=== PATIENT | female | born 1965 | race Caucasian/White ===

== ENCOUNTER 2018-04-01 06:37 | Day surgery (SDC) | payer OTHER, SELFPAY ==
[2018-03-25 08:34] VITALS: BMI 33.3
[2018-04-01] VITALS (11 sets, daily range): BP systolic 97–116; BP diastolic 43–78; PULSE 50–84; RESP 9–20; TEMP 36.2–37.1; O2SAT 93–99; BMI 32.8
--- NOTE | 2018-04-01 | PATH_ITS ---
[facility] Accession Number: [id number] . 01 Material submitted: . UTERUS AND BILATERAL FALLOPIAN TUBES . 02 Diagnosis: Uterus and Bilateral Fallopian Tubes, Hysterectomy, Bilateral Salpingectomies: 1. Bilateral fallopian tubes with paratubal cysts. 2. Proliferative endometrium. 3. Adenomyosis. 4. Benign endometrial polyp. 5. No evidence of neoplasia or hyperplasia. [facility]/04/03/2018 . 02 Electronically signed: . Vianney Victor MD, Pathologist NPI- [id number] . 01 Gross description: . Received in formalin, labeled uterus and bilateral fallopian tubes, is a morcellated uterus (92 grams, 14.5 x 9.5 x 3.3 cm in aggregate) and two fimbriated fallopian tubes (tube #1: length-6.6 cm, diameter-0.4 cm; tube #2: length-6.1 cm, diameter-0.4 cm). The cervix and ovaries are absent. The specimen cannot be oriented and the endometrium and myometrium cannot be grossly measured. The parenchyma is blackwell and unremarkable. The serosa is blackwell smooth and shiny. The fallopian tubes have dejesus-purple smooth and shiny serosa and multiple paratubal cysts (0.1 cm-0.9 cm) containing clear colorless fluid. The lumens are blackwell and unremarkable. Section code: (A1-A4) parenchyma, benefits representative tissue; (A5) fallopian tube #1, benefits representative serial sections; (A6) fimbria #1, bivalved, entirely submitted; (A7) fallopian tube #2, benefits representative serial sections; (A8) fimbria #2, bivalved, entirely submitted. ([id number]) /[facility] . 02 Pathologist provided ICD-10: N92.6 . 02 CPT . 349113 Performed at: 01 [facility] [address] [place] [address], [place], [place] [id number] MD Ramy Roger MD Phone: [phone] Performed at: 02 [facility] [address] [place], [place] [id number] MD Vianney Victor MD Phone: [phone]
[2018-04-01] MEDS: LACTATED RINGERS 1,000 ML 42 ML IV ×2 (07:22→10:12)
--- NOTE | 2018-04-01 07:43 | PM.PREOP ---
Pre-operative Note Interval Note Pre-op Check: Yes History & Physical Reviewed by Physician Changes: No
[2018-04-01] MEDS: CEFAZOLIN 2 GM/100 ML FROZ.PIGGY IV (07:59)
--- NOTE | 2018-04-01 08:43 | SUR.OPER ---
Lithotomy on padded OR bed. Raymond Pad Positioner under torso. Head on pillow, arms padded and tucked at sides. Legs secured in padded yellow fins stirrups.
[2018-04-01] MEDS: BUPIVACAINE 0.5% W/ EPI (PF) VIAL 30 ML INJ (08:52)
[2018-04-01] MEDS: ROPIVACAINE 0.2% PF 2 MG/ML 10ML AMP 20 ML INJ (09:02)
--- NOTE | 2018-04-01 09:56 | SUR.PHASEI ---
Pt reported 3/10 craping abd pain, pt declined opiods due to hx of vomiting. Ice pack applied
[2018-04-01] MEDS: METOCLOPRAMIDE 10 MG/2 ML INJ IV (10:02)
--- NOTE | 2018-04-01 10:04 | SUR.PHASEI ---
Pt reported mild nausea, medicated with Reglan.
--- NOTE | 2018-04-01 10:10 | SUR.PHASEI ---
Pt c/o nausea, queaze offered, pt declined. Pt tolerated a sip of gingerale.
--- NOTE | 2018-04-01 10:46 | SUR.PHASEII ---
Spouse at bedside. Call light within reach.
--- NOTE | 2018-04-01 10:57 | CM.DPNOTE ---
Addendum entered by LEVY Reina 04/01/18 13:22: ADD: Per MD, pt is medically stable to d/c home today with no identified barriers to discharge. Per Rn, no concerns at this time. Plan: Patient to d/c home today via POV and no SW needs at this time. LEVY Reina Original Note: DCP Chart Review Patient is a 52 year old female who was admitted today on 04/01/18 as Outpt with Bed for hysterectomy. Pt has [employer] for insurance and her PCP is not listed. EMR was reviewed. SW attempted to meet bedside with pt but pt was off the floor at surgery and no family in the room. Plan: SW to follow for bedside assessment once pt is back from surgery to determine if any d/c planning needs. LEVY Reina
[2018-04-01] MEDS: ACETAMINOPHEN 1,000 MG/100 ML VIAL IV (11:06)
--- NOTE | 2018-04-01 11:13 | SUR.PHASEII ---
IV tylenol started, on a plum pump, set for 15 minutes. Pt denied nausea at this time.
--- NOTE | 2018-04-01 11:14 | SUR.PHASEII ---
Abd drsgs cdi 4, Carrol-pad CDI.
--- NOTE | 2018-04-01 11:50 | SUR.PHASEII ---
Pt up to the bathroom, + void. Post void residual bladder scan showed 31mls. Pt reported 2/10 pain and denied nausea. Skin pink. Offered applesauce, pt declined at this time. Call light within reach.
--- NOTE | 2018-04-01 13:13 | SUR.PHASEII ---
Pt declined Oxycodone Rx due to hx of vomiting with medication. Dr. Herman notified, new rx for Hydrocodone picked up and give to pt's spouse. Oxycodone Rx destroyed.
--- NOTE | 2018-04-02 06:59 | P.OP_ITS ---
Operative Date/Time/Diagnoses Date of procedure: 04/01/18 Time of procedure: 09:30 Pre-op diagnosis: Pelvic pain Pelvic congestion Post-op diagnosis: same Procedure: Procedures Operation Date: 04/01/18 07:45 Actual Procedures Side Surgeon p Laparoscopic Supracervical Hysterectomy w/Bilat Salpingectomy Not Applicable Leigh Herman MD Excision of left ovarian cyst Indications: Pelvic pain Pelvic congestion Left ovarian cyst Surgeon: Leigh Herman Knife Sharpener: Clarence Tillman Anesthesia Type: General Operative Notes Findings: 10 week size anteverted uterus 3 cm simple left ovarian cyst Normal right ovary Normal tubes Normal liver and gallbladder Closure Type: primary Specimen(s): left tube, right tube and uterus Applied: catheter (Removed at the end of the case) Estimated blood loss (mL): 50 Blood products transfused: none Procedure in detail: The patient was taken to the operating room where she was placed in the dorsal supine position. After adequate general endotracheal anesthesia was achieved, she was placed in the dorsal lithotomy position, and prepped and draped in the usual sterile fashion. A timeout was performed. A bivalve speculum was placed into the vagina and the anterior lip of the cervix grasped with a single-tooth tenaculum. The cervical os was sequentially dilated until the ZUMI uterine manipulator could pass easily into the endometrial cavity. The single-tooth tenaculum was removed from the anterior lip of the cervix, and the bivalve speculum was removed from the vagina. Attention was then turned to the abdomen where 6 mL of half percent Marcaine with epinephrine were injected in the umbilical fold. A 5 mm incision was made. The Verhees needle was placed into the peritoneal cavity, and its placement confirmed by aspiration and drop test. The Verhees needle was removed. A 5 mm trocar was placed without difficulty. 2 other incisions were made midway between the pubic symphysis and umbilicus after 5 mL of half percent Marcaine with epinephrine were injected. These were 5 mm incisions. Two 5 mm trochars were placed under direct visualization. The right tube was grasped with an atraumatic grasper. Using the plasma kinetic with settings of 40 W the mesosalpinx was cauterized and cut all the way down to the cornua of the uterus. The cornua of the uterus was then grasped with an atraumatic grasper. The utero-ovarian ligaments were cauterized and cut. The round ligament and broad ligament was cauterized and cut with plasma kinetic. Hemostasis was achieved. The bladder flap was created using the plasma kinetic with cautery and cut intermediate across. The uterine arteries on the right side were extensively cauterized with plasma kinetic. All of this was repeated on the left side. Also the left ovarian cyst was punctured and the cyst wall removed and cauterized for hemostasis. The remainder of the bladder flap was created using the plasma kinetic, and the bladder taken down off the lower uterine segment and cervix. Using the Endoloop, the cervix was amputated from the uterus 2 cm above the uterosacral ligaments, after the ZUMI uterine manipulator was removed from the uterus. There was a small amount of bleeding noted from the posterior edge of the cervix, and this was cauterized for hemostasis. A sponge stick was placed into the vagina. 6 mL of half percent Marcaine with epinephrine were injected above the pubic symphysis. A 12 mm trocar was placed. The 12 mm trocar was removed. A Mayra was used to extend the fascial incision. An Endobag was placed through the suprapubic trocar and the uterus and tubes were placed into the Endobag. The Anderson placed into the endobag. The uterus was hand morcellated in approximately 14 pieces. The Endobag was removed from the peritoneal cavity. The pelvis was copiously irrigated with warm normal saline. No bleeding was noted. The instruments were removed from the abdomen. The CO2 was allowed to escape. The suprapubic incision was closed on the fascia with 0 Vicryl. All of the incisions were closed with 4-0 undyed Vicryl in a subcuticular fashion. Steri-Strips, 2 x 2, and op site were placed over the incisions. The moistened sponge stick was removed from the vagina. Sponge, lap, and instrument counts were correct x-2. The patient tolerated the procedure well, was taken to PACU in stable condition. Complications: none Post-operative Condition: stable Disposition: PACU Plan for aftercare: Home after recovery
== END 2018-04-01 12:59 | disposition home or self-care (01) ==
LOC: OR 06:38 → AC 06:40
PROVIDERS: Visit Provider Obstetrics & Gynecology
PROC: 0UT94ZL Resection of Uterus, Supracervical, Percutaneous Endoscopic Approach (ICD-10-PCS; CPT 58542; principal; 2018-04-01 07:45)
DX: N83.292 Other ovarian cyst, left side (principal); N94.6 Dysmenorrhea, unspecified; J45.909 Unspecified asthma, uncomplicated; F33.41 Major depressive disorder, recurrent, in partial remission
CPT/HCPCS: 58542; J0131; J0690; J1100; J2405; J2704; J2765; J2795

== ENCOUNTER → 2018-12-30 11:30 | Outpatient (CLI) | payer OTHER, SELFPAY ==
--- NOTE | 2018-12-30 | DI.MG.S_ITS ---
BILATERAL DIGITAL SCREENING MAMMOGRAM 3D/2D WITH CAD: 12/30/2018 CLINICAL: Routine screening. Family history of breast cancer. Comparison is made to exams dated: 06/26/2017 mammogram, 06/01/2016 mammogram, and 01/21/2015 mammogram - [facility]. The tissue of both breasts is extremely dense, which lowers the sensitivity of mammography. Current study was also evaluated with a Computer Aided Detection (CAD) system. No significant masses, calcifications, or other findings are seen in either breast. There has been no significant interval change. IMPRESSION: NEGATIVE There is no mammographic evidence of malignancy. A 1 year screening mammogram is recommended. This exam was interpreted at Station ID: [id number]. NOTE: For mammograms, a report in lay terms will be sent to the patient. Approximately 15% of breast malignancies will not be visualized mammographically. In the management of a palpable breast mass, a negative mammogram must not discourage biopsy of a clinically suspicious lesion. Electronically Signed By: Frank sotelo/lisa:12/30/2018 12:30:16 letter sent: Normal Exam ACR BI-RADS Category 1: Negative 3341F
== END ==
PROVIDERS: Family Provider Physician Assistant; PCP Physician Assistant; Visit Provider Obstetrics & Gynecology
DX: Z12.31 Encounter for screening mammogram for malignant neoplasm of breast (principal); Z80.3 Family history of malignant neoplasm of breast
CPT/HCPCS: 77063; 77067

== ENCOUNTER → 2019-01-15 16:00 | Outpatient (CLI) | payer OTHER, SELFPAY ==
--- NOTE | 2019-01-15 16:02 | DI.MRI.S_ITS ---
PROCEDURE: MR CERVICAL SPINE WO CON INDICATIONS: Cervical pain with radiculopathy left arm TECHNIQUE: Noncontrast sagittal T1 spin echo and T2 fast spin echo, sagittal STIR, foraminal oblique sagittal T2 fast spin echo, and axial gradient echo or T2 fast spin echo through the cervical spine. COMPARISON: None. FINDINGS: Image quality: Excellent. Alignment and Curvature: There is normal bony alignment. Bone Marrow: Marrow demonstrates normal overall signal. Spinal Cord: Visualized spinal cord has normal size and signal. No cerebellar tonsillar herniation. Paraspinous Soft Tissues: No paravertebral masses. Prevertebral soft tissues are normal in thickness. C2-C3: Normal appearance. C3-C4: Mild to moderate degenerative disc disease with the posterior small transverse disc bulge, and facet hyperostosis at the facet joints bilaterally is mild, combining with uncovertebral osteoarthritic change at C3-4 resulting in mild concentric spinal stenosis and mild to moderate foraminal stenosis without definite focal nerve root impingement.. C4-C5: The degenerative changes at this level are greater, and also more prominent on the left than the right. The degenerative disc height reduction is moderately severe, and there is a broad-based transverse disc bulge that is slightly greater on the left than the right, with facet and uncovertebral osteoarthritis more prominent on the left than the right resulting in asymmetric foraminal stenosis. Therefore there is mild to moderate asymmetric left-sided predominant spinal stenosis and also foraminal stenosis greater on the left with potential for significant impingement on the left C5 nerve root. C5-C6: Moderately severe degenerative disc disease is present but with only a slight degree of posterior disc bulging which effaces CSF from the anterior thecal sac but does not distort the cord. Facet and uncal vertebral degenerative changes are again seen to be slightly greater on the left right. With a mild degree of right-sided foraminal stenosis and a mild to moderate degree of left-sided foraminal stenosis asymmetric left greater than right nerve root impingement involving the C6 nerve root would be expected. C6-C7: Moderately severe degenerative disc disease, but with only a small posterior transverse disc bulge. Facet and uncovertebral osteoarthritic change is symmetric, moderately severe, and results in moderate symmetric bilateral foraminal stenosis with likelihood of symmetric impingement on the course of the C7 nerve roots equally. C7-T1: Mild degenerative disc disease, minimal facet degeneration, no significant spinal or foraminal stenosis. IMPRESSION: Multilevel degenerative disc disease and facet osteoarthritis results in both spinal and foraminal stenosis that is both measure 10 asymmetric as discussed in detail by level and the body of the report above. No prior trauma is found. No evidence for presence of disc bulge or herniation that appears acute. Dictated by: Hardik Salazar M.D. on 01/15/2019 at 16:51 Approved by: Hardik Salazar M.D. on 01/15/2019 at 16:57
== END ==
PROVIDERS: PCP Physician Assistant; Visit Provider Physician Assistant
DX: M50.11 Cervical disc disorder with radiculopathy, high cervical region (principal); M48.02 Spinal stenosis, cervical region; M47.22 Other spondylosis with radiculopathy, cervical region
CPT/HCPCS: 72141

== ENCOUNTER → 2019-12-23 16:10 | Outpatient (CLI) | payer OTHER, SELFPAY | PROVIDERS: PCP Physician Assistant; Visit Provider Nurse Practitioner | DX: R21 Rash and other nonspecific skin eruption (principal) | CPT/HCPCS: 87252 ==

== ENCOUNTER → 2020-01-24 08:55 | Outpatient (CLI) | payer OTHER, SELFPAY ==
--- NOTE | 2020-01-24 09:12 | DI.MG.S_ITS ---
Patient Name: CHEMO SHARMA date: 1965 Sex: F Attending Physician: Alexandre Indications: Date: 01/24/2020 09:10 At the request of: SILVINO GARCIA Procedure: MM screening mammo BI BILATERAL DIGITAL SCREENING MAMMOGRAM 3D/2D WITH CAD: 01/24/2020 CLINICAL: Routine screening. Family history of breast cancer. Comparison is made to exams dated: 12/30/2018 mammogram, 06/26/2017 mammogram, and 06/01/2016 mammogram - [facility]. The tissue of both breasts is heterogeneously dense. This may lower the sensitivity of mammography. Current study was also evaluated with a Computer Aided Detection (CAD) system. No significant masses, calcifications, or other findings are seen in either breast. There has been no significant interval change. IMPRESSION: NEGATIVE There is no mammographic evidence of malignancy. A 1 year screening mammogram is recommended. This exam was interpreted at Station ID: [id number]. NOTE: For mammograms, a report in lay terms will be sent to the patient. Approximately 15% of breast malignancies will not be visualized mammographically. In the management of a palpable breast mass, a negative mammogram must not discourage biopsy of a clinically suspicious lesion. Electronically Signed By: Linda oneill/lisa:01/26/2020 08:20:09 letter sent: Normal Exam ACR BI-RADS Category 1: Negative 3341F
== END ==
PROVIDERS: PCP Nurse Practitioner; Referring Provider Nurse Practitioner; Visit Provider Nurse Practitioner
DX: Z12.31 Encounter for screening mammogram for malignant neoplasm of breast (principal); Z80.3 Family history of malignant neoplasm of breast
CPT/HCPCS: 77063; 77067

== ENCOUNTER → 2021-01-27 11:02 | Outpatient (CLI) | payer OTHER, SELFPAY ==
--- NOTE | 2021-01-27 11:03 | DI.MG.S_ITS ---
BILATERAL DIGITAL SCREENING MAMMOGRAM 3D/2D WITH CAD: 01/27/2021 CLINICAL: Routine screening. Family history of breast cancer. Comparison is made to exams dated: 01/24/2020 mammogram, 12/30/2018 mammogram, and 06/26/2017 mammogram - [facility]. The tissue of both breasts is heterogeneously dense. This may lower the sensitivity of mammography. Current study was also evaluated with a Computer Aided Detection (CAD) system. No significant masses, calcifications, or other findings are seen in either breast. There has been no significant interval change. IMPRESSION: NEGATIVE There is no mammographic evidence of malignancy. A 1 year screening mammogram is recommended. This exam was interpreted at Station ID: [id number]. NOTE: For mammograms, a report in lay terms will be sent to the patient. Approximately 15% of breast malignancies will not be visualized mammographically. In the management of a palpable breast mass, a negative mammogram must not discourage biopsy of a clinically suspicious lesion. Electronically Signed By: Vern Conteh M.D., jr/lisa:01/27/2021 13:19:15 letter sent: Normal Exam ACR BI-RADS Category 1: Negative 3341F
[2021-01-27 11:54] LABS: Add Manual Diff / Slide Review NO; Basophils Absolute Auto 0 /uL (0-100); Basophils Percent Auto 0.7 % (0-2); Eosinophils Absolute Auto 100 /uL (0-450); Eosinophils Percent Auto 2.6 % (2-4); Hematocrit 40.3 % (36-46); Hemoglobin 13.6 g/dL (12.0-16.0); Lymphocytes Absolute Auto 3100 /uL (1100-4500); Lymphocytes Percent Auto 54.3 % (25-40); Mean Corpuscular HGB Conc 33.8 % (30-36); Mean Corpuscular Hemoglobin 30.7 PG (26-34); Mean Corpuscular Volume 90.8 fL (80-100); Monocytes Absolute Auto 400 /uL (0-900); Monocytes Percent Auto 6.2 % (3-14); Neutrophils Absolute Auto 2100 /uL (1500-7000); Neutrophils Percent Auto 36.2 % (50-75); Platelet Count 181 X10^3/uL (150-400); Red Blood Cell Count 4.44 X10^6/uL (4.0-5.2); White Blood Cell Count 5.7 X10^3/uL (4.5-11.0)
[2021-01-27 12:05] LABS: Alanine Aminotransferase 31 IU/L (<35); Albumin 4.5 g/dL (3.5-5.0); Albumin Globulin Ratio 1.9 (1.0-2.8); Alkaline Phosphatase 66 U/L (38-126); Aspartate Aminotransferase 33 IU/L (14-36); BUN Creatinine Ratio 15.2 (6-22); Bilirubin Total 0.6 mg/dL (0.2-1.3); Blood Urea Nitrogen 12 mg/dL (7-17); Calcium 9.7 mg/dL (8.4-10.2); Carbon Dioxide 29 mmol/L (22-32); Chloride 106 mmol/L (98-107); Cholesterol 155 mg/dL (140-199); Estimated Glomerular Filt Rate > 60.0 mL/min (>60); Globulin 2.4 g/dL (1.7-4.1); Glucose 91 mg/dL (70-100); HDL Cholesterol 62 mg/dL (40-60); HEMOLYSIS < 15 (0-50); LDL Cholesterol Calculated 75 mg/dL (<100); Sodium 141 mmol/L (137-145); Total Protein 6.9 g/dL (6.3-8.2); Triglycerides 90 mg/dL (35-150)
[2021-01-27 12:27] LABS: Free T4, Direct Thyroxine 0.73 ng/dL (0.78-2.19)
[2021-01-27 12:30] LABS: Hemoglobin A1C% w Est Avg Glu 5.2 % (4.0-6.0)
[2021-01-27 12:41] LABS: Thyroid Stimulating Hormone 1.74 uIU/mL (0.47-4.68)
== END ==
PROVIDERS: PCP Nurse Practitioner; Referring Provider Nurse Practitioner; Visit Provider Nurse Practitioner
DX: Z12.31 Encounter for screening mammogram for malignant neoplasm of breast (principal); Z00.00 Encounter for general adult medical examination without abnormal findings; F32.9 Major depressive disorder, single episode, unspecified; R53.83 Other fatigue; F41.8 Other specified anxiety disorders; F51.01 Primary insomnia; E78.5 Hyperlipidemia, unspecified; Z79.899 Other long term (current) drug therapy; Z80.3 Family history of malignant neoplasm of breast
CPT/HCPCS: 36415; 77063; 77067; 80053; 80061; 83036; 84439; 84443; 84481; 85025

== ENCOUNTER → 2021-02-02 09:28 | Outpatient (CLI) | payer OTHER, SELFPAY ==
[2021-02-04 15:36] LABS: Fecal Immunochemical Test Negative (Negative)
== END ==
PROVIDERS: PCP Nurse Practitioner; Referring Provider Nurse Practitioner; Visit Provider Nurse Practitioner
DX: Z00.00 Encounter for general adult medical examination without abnormal findings (principal); Z12.11 Encounter for screening for malignant neoplasm of colon
CPT/HCPCS: 82274

== ENCOUNTER → 2022-02-01 11:09 | Outpatient (CLI) | payer OTHER, SELFPAY ==
--- NOTE | 2022-02-01 | DI.MG.S_ITS ---
BILATERAL DIGITAL SCREENING MAMMOGRAM 3D/2D WITH CAD: 02/01/2022 CLINICAL: Routine screening. Family history of breast cancer. Comparison is made to exams dated: 01/27/2021 mammogram, 01/24/2020 mammogram, and 12/30/2018 mammogram - [facility]. Both breasts are heterogeneously dense, which may obscure small masses (category c / 51-75% glandular tissue). Current study was also evaluated with a Computer Aided Detection (CAD) system. No significant masses, calcifications, or other findings are seen in either breast. There has been no significant interval change. IMPRESSION: NEGATIVE There is no mammographic evidence of malignancy. A 1 year screening mammogram is recommended. This exam was interpreted at Station ID: [id number]. NOTE: For mammograms, a report in lay terms will be sent to the patient. Approximately 15% of breast malignancies will not be visualized mammographically. In the management of a palpable breast mass, a negative mammogram must not discourage biopsy of a clinically suspicious lesion. Electronically Signed By: Vineet art/lisa:02/01/2022 14:49:00 letter sent: Normal Exam ACR BI-RADS Category 1: Negative 3341F
== END ==
PROVIDERS: PCP Nurse Practitioner; Referring Provider Nurse Practitioner; Visit Provider Nurse Practitioner
DX: Z12.31 Encounter for screening mammogram for malignant neoplasm of breast (principal); Z80.3 Family history of malignant neoplasm of breast
CPT/HCPCS: 77063; 77067

== ENCOUNTER 2022-11-25 16:04 | Emergency (ER) | payer OTHER, SELFPAY ==
[2022-11-25] VITALS (20 sets, daily range): BP systolic 129–153; BP diastolic 67–84; PULSE 71–93; RESP 10–29; TEMP 36.7; O2SAT 94–100; BMI 31.6
--- NOTE | 2022-11-25 16:21 | DI.RAD.S_ITS ---
PROCEDURE: XR ANKLE LT 2V INDICATIONS: fall TECHNIQUE: 2 views of the ankle were acquired. COMPARISON: None. FINDINGS: Bones: Trimalleolar fracture with posterior dislocation of the talus relative to the tibia. Small plantar calcaneal enthesophyte. Soft tissues: No tibiotalar joint effusion. Achilles tendon appears normal. IMPRESSION: Trimalleolar fracture of the left ankle with posterior dislocation of the talus. Dictated by: Frank Edwards M.D. on 11/25/2022 at 15:54 Approved by: Frank Edwards M.D. on 11/25/2022 at 15:55
--- NOTE | 2022-11-25 16:24 | DI.RAD.S_ITS ---
PROCEDURE: XR KNEE LT 1TO2V INDICATIONS: fall TECHNIQUE: 2 views of the knee were acquired. COMPARISON: None. FINDINGS: Bones: No fractures or dislocations. No suspicious bony lesions. Soft tissues: No substantial joint effusion. No suspicious soft tissue calcifications. IMPRESSION: Left knee without acute fracture or dislocation. If there is persistent clinical concern for occult fracture given adequate mechanism of injury, consider repeat imaging in 10-14 days. Dictated by: Frank Edwards M.D. on 11/25/2022 at 15:56 Approved by: Frank Edwards M.D. on 11/25/2022 at 15:57
[2022-11-25] MEDS: MORPHINE 4 MG/ML INJ IV (16:53)
[2022-11-25] MEDS: MORPHINE 2 MG/ML INJ IV (18:30)
--- NOTE | 2022-11-25 20:09 | ED.LOWEXIN ---
HPI - Extremity Injury (Lower) General Chief Complaint: Extremity Injury, Lower Stated Complaint: GLF Time Seen by Provider: 11/25/22 16:55 Source: patient and EMS Mode of arrival: EMS History of Present Illness HPI Narrative: 57-year-old woman with a history of depression [place] this [place] with her partner stumbled over a log had an inversion injury with the left foot and significant ankle injury with deformity and unable to walk. Does not complain of other injury. No knee or hip involvement. Related Data Home Medications Medication Instructions Recorded Confirmed ibuprofen 200 mg tablet (Advil) 400 mg PO Q6H PRN pain 12/30/18 02/08/21 Previous Rx's Medication Instructions Recorded duloxetine 20 mg capsule,delayed 40 mg PO DAILY #180 caps 10/31/21 release (Cymbalta) prednisone 5 mg tablets in a dose 5 mg PO DAILY #21 ea 02/17/22 pack zolpidem 10 mg tablet 10 mg PO BEDTIME PRN insomnia #10 02/17/22 tabs rosuvastatin 10 mg tablet See Rx Instructions .Route 11/15/22 .COMPLEX #90 tabs oxycodone-acetaminophen 5 mg-325 1 tab PO Q6H PRN pain #14 tabs 11/25/22 mg tablet Allergies Allergy/AdvReac Type Severity Reaction Status Date / Time penicillin G [PENICILLIN G] Allergy Intermediate RASH Verified 11/25/22 16:14 morphine [MORPHINE] AdvReac Intermediate Vomiting, Verified 11/25/22 16:14 sweating Review of Systems Review of Systems Narrative: Pertinent positive and negative findings as per HPI Patient History Medical History Actinic keratosis (~2013) Anxiety (07/13/16) Asthma (1966) Chicken pox (1975) Depression (1989) Depression with anxiety Diverticular disease (02/2013) Dysmenorrhea Family history of autoimmune disorder Fatigue Herpes zoster Insomnia Internal hemorrhoids Irregular menstrual cycle Joint pain Neck pain Ovarian cyst Pelvic congestion Radiculopathy affecting upper extremity Skin lesion of face Surgical History Anesthesia complication History of partial hysterectomy History of third molar tooth extraction S/P laparoscopic hysterectomy (~03/2018) Status post delivery (12/14/99) Status post delivery (10/26/04) Family History Child Age: 24 Autism Child Age: 22 Asthma Juvenile arthritis Multiple food allergies Pulmonary vascular obstructive disease COPD (chronic obstructive pulmonary disease) Bronchiolitis Father Age: 80 Hypertension High cholesterol Gout Vitiligo Diabetes mellitus History of heart disease Mother Bipolar 1 disorder Suicide Sister Mental health problem Grandfather Cancer Grandmother Cancer High cholesterol Hypertension Grandfather Stroke Social History household members: spouse Smoking Status: Never smoker second hand exposure: No alcohol intake: current (a glass of wine about 5 days a week.) substance use type: does not use Smoking Status: Never smoker alcohol intake frequency: holidays/special occasions only Substance Use Type: marijuana Exam Initial Vital Signs Initial Vital Signs: Vital Signs Temperature 98.1 F 11/25/22 16:14 Pulse Rate 77 11/25/22 16:14 Respiratory Rate 18 11/25/22 16:14 Blood Pressure 132/74 11/25/22 16:14 Pulse Oximetry 99 11/25/22 16:14 Oxygen Delivery Method Room Air 11/25/22 16:14 General: Healthy appearing, in acute pain. Able to give a complete and coherent history. Well-nourished well-developed Respiratory: Lungs are clear to auscultation, no wheezing no rales no rhonchi. Full and symmetrical air movement Cardiac: Regular rate and rhythm no murmurs no bruits Abdomen: Soft, nontender, good bowel tones, no flank pain Skin: Warm and dry, no rashes Neurologic: Grossly neurologically intact with no obvious asymmetries or abnormalities Extremities: Obvious deformity to the left ankle, neurovascularly intact distally Psych: Cooperative, appropriate insight and affect Procedures Orthopedic Fracture Reduction Left ankle: Time of procedure: 21:00 Time Out Performed: Yes Side: left Fracture Reduction Location: tibia and fibula Analgesia: procedural sedation Technique: direct manipulation and traction/counter-traction Post Reduction X-rays Demonstrate: anatomical reduction Post-reduction neuro exam: intact Post-reduction vascular exam: intact Splint Applied: Yes Patient Tolerated Procedure: Well Orthopedic Splinting/Casting Left ankle: Time of procedure: 07:00 Side: left Lower Extremity Injury Location: ankle Lower Extremity Immobilizer: posterior splint and stirrup splint Post splinting neuro exam: intact Post splinting vascular exam: intact Placed by: Provider Procedural Sedation Time of procedure: 07:01 Consent signed: Yes Time out performed: Yes Indication: fracture/dislocation reduction ASA Class: II Mallampati Airway Classification: Class II Preparation: hospital monitor applied, pulse oximeter, suction/airway equipment at bedside and IV secured IV Propofol dose (mg): 170 Intraservice time/total sedation time (min): 21 ED Sedation Level: Moderate (Concious) Patient Tolerated Procedure: Well Complications: none Course Orders Ordered: Discontinued Medications Hydromorphone HCl (Hydromorphone 1 Mg Inj) 1 mg IV NOW ONE Stop: 11/25/22 21:21 Last Admin: 11/25/22 21:49 Dose: 1 mg Documented By: AYDEE Hydromorphone HCl (Hydromorphone 0.5 Mg Inj) 0.5 mg IV Q15MIN PRN PRN Reason: Pain, Ketamine HCl (Ketamine 500 Mg/10 Ml Inj) 85 mg 1 mg/kg (85 mg) IV NOW ONE Stop: 11/25/22 20:29 Last Admin: 11/25/22 20:37 Dose: Not Given Documented By: VINCENT Morphine Sulfate (Morphine 4 Mg/Ml Inj) 4 mg IM NOW ONE Stop: 11/25/22 16:35 Last Admin: 11/25/22 17:01 Dose: Not Given Documented By: NAVA Morphine Sulfate (Morphine 4 Mg/Ml Inj) 4 mg IV NOW ONE Stop: 11/25/22 16:36 Last Admin: 11/25/22 16:53 Dose: 2 mg Documented By: NAVA Morphine Sulfate (Morphine 2 Mg/Ml Inj) 2 mg IV NOW ONE Stop: 11/25/22 18:15 Last Admin: 11/25/22 18:30 Dose: 2 mg Documented By: NAVA Oxycodone/Acetaminophen (Oxycodone/Apap 5/325 Prepack) 1 bottle MISC SEEINSTR ONE Stop: 11/25/22 23:59 Last Admin: 11/26/22 00:22 Dose: 1 bottle Documented By: AYDEE Propofol (Propofol 200 Mg/20 Ml Vial) 200 mg IV NOW ONE Stop: 11/25/22 20:39 Last Admin: 11/25/22 21:27 Dose: 170 mg Documented By: SB Vital Signs Vital signs: Vital Signs - 8 hr 07/15/23 23:00 11/25/22 23:30 11/26/22 00:00 Pulse Rate 75 74 75 Respiratory Rate 12 22 15 Pulse Oximetry 95 97 96 Oxygen Delivery Method Room Air MDM - Extremity Injury (Lower) Lab Data Labs: Point of Care Testing Test Results Not applicable MDM Narrative Medical decision making narrative: CC: Ankle pain and deformity, acute issue uncertain prognosis Data collected from: patient, spouse Differential considered: Fracture, fracture dislocation Exam documented above, pertinent findings include: Significant deformity neurovascularly intact Lab Test not indicated at this time Imaging studies independently reviewed: Ankle x-ray shows trimalleolar fracture with dislocation Knee x-ray shows no acute fractures Postreduction ankle x-ray shows appropriate alignment CT of the ankle appropriate alignment Consultations: Discussion with Dr. Terrazas, orthopedic surgery. Prior to reduction. Agrees with plan. Reviewed postreduction and agrees with discharge home Treatments: Pain control, sedation, fracture reduction and ankle the relocation with splinting Discussion: 57-year-old woman with trimalleolar ankle fracture dislocation. Conscious sedation to reduce and splint with posterior splint with sugar-tong used. Consultation with Orthopedic surgery. Findings reviewed with patient. Pain is adequately controlled. Reviewed the importance of nonweightbearing, she is given crutches. Discussed use of nonsteroidals, Tylenol and narcotics as needed for pain control. She will follow-up with Dr. Terrazas as an outpatient with anticipated surgical intervention for definitive treatment of her ankle fracture. Discharge Plan Departure Patient Disposition: Home Clinical Impression: Closed trimalleolar fracture of ankle Qualifiers: Encounter type: initial encounter Laterality: left Qualified Code(s): S82.852A - Displaced trimalleolar fracture of left lower leg, initial encounter for closed fracture Closed dislocation of ankle Qualifiers: Encounter type: initial encounter Laterality: left Qualified Code(s): S93.05XA - Dislocation of left ankle joint, initial encounter Instructions: DI for Ankle Fracture Activity Restrictions/Additional Instructions: Thank you for coming in today You have a significant ankle fracture that is unstable. This means that you can not put any weight on your foot. The ankle was put back into a better position and a splint was placed. You need to make sure the splint stays in place. Please make sure you are using crutches Using 400 mg of ibuprofen (2 [id number] pills) and 1 Tylenol every 6 hours can be very helpful in controlling pain. For severe pain you can use 400 mg of ibuprofen and 1-2 Percocet. A Percocet prescription has been electronically transmitted to [facility] in [place]. You are going to need surgery for this ankle. I have reviewed your findings and x-rays this evening with Dr. Terrazas, 1 of our orthopedic surgeons. He will need to contact her office, [facility], at [phone]. Please call on Sunday and explain that you are in the emergency department and need a follow-up visit for your trimalleolar ankle fracture dislocation that was seen in the emergency department on Sunday night. Keeping the foot elevated and using ice on the outside of the cast can help with swelling, inflammation and pain. If you find that you are getting worse or develop any new symptoms, please feel free to return to the emergency department for further evaluation. Prescriptions: New oxycodone-acetaminophen 5-325 mg tablet 1 tab PO Q6H PRN (Reason: pain) Qty: 14 0RF No Action duloxetine [Cymbalta] 20 mg capsule,delayed release(DR/EC) 40 mg PO DAILY Qty: 180 3RF Rx Instructions: Take 2 caps daily by mouth daily prednisone 5 mg tablets,dose pack 5 mg PO DAILY Qty: 21 1RF Rx Instructions: Day 1: 10 mg PO before breakfast, 5 mg after lunch and after dinner, and 10 mg at bedtime Day 2: 5 mg PO before breakfast, after lunch, and after dinner and 10 mg at bedtime Day 3: 5 mg PO before breakfast, after lunch, after dinner, and at bedtime Day 4: 5 mg PO before breakfast, after lunch, and at bedtime Day 5: 5 mg PO before breakfast and at bedtime Day 6: 5 mg PO before breakfast zolpidem 10 mg tablet 10 mg PO BEDTIME PRN (Reason: insomnia) Qty: 10 1RF Rx Instructions: Take 1/2 to 1 tab by mouth for insomnia as needed. rosuvastatin 10 mg tablet See Rx Instructions .ROUTE .COMPLEX Qty: 90 0RF Dose Instruction: TAKE ONE TABLET BY MOUTH ONE TIME DAILY IN THE EVENING FOR HIGH CHOLESTEROL Rx Instructions: TAKE ONE TABLET BY MOUTH ONE TIME DAILY IN THE EVENING FOR HIGH CHOLESTEROL ibuprofen [Advil] 200 mg tablet 400 mg PO Q6H PRN (Reason: pain) Referrals: Carol Schroeder ARNP [Primary Care Provider] - Stand Alone Forms: Patient Portal/API
--- NOTE | 2022-11-25 21:20 | DI.CT.S_ITS ---
PROCEDURE: CT LE LT W CON INDICATIONS: trimalleolar fracture with dislocation -preop TECHNIQUE: Noncontrast 1-1.5 mm axial sections acquired from above the tibiotalar joint to the bottom of the calcaneus, with coronal and sagittal reformats. COMPARISON: [facility], CR, XR ANKLE LT 2V, 11/25/2022, 16:21. [facility], CR, XR ANKLE LT MIN 3V, 11/25/2022, 21:05. FINDINGS: Image quality: Excellent. Bones: Trimalleolar fracture at the left ankle, previously identified fracture dislocation has been successfully reduced with near anatomic alignment in splint at time of CT scanning. Soft tissues: No hematoma found. IMPRESSION: Excellent anatomic alignment established by closed reduction and splinting-trimalleolar fracture with resolution of the prior associated dislocation. Orthopedic surgical consultation is anticipated. Dictated by: Hardik Salazar M.D. on 11/25/2022 at 22:01 Approved by: Hardik Salazar M.D. on 11/25/2022 at 22:02
--- NOTE | 2022-11-25 21:20 | DI.RAD.S_ITS ---
PROCEDURE: XR ANKLE LT MIN 3V INDICATIONS: post reduction TECHNIQUE: 3 views of the ankle were acquired. COMPARISON: Located [facility], CR, XR ANKLE LT 2V, 11/25/2022, 16:21. FINDINGS: Bones: No previously on identified fractures or dislocations. Ankle mortise is normally aligned. No suspicious bony lesions. Soft tissues: No tibiotalar joint effusion. Achilles tendon appears normal. IMPRESSION: There has been excellent closed reduction of the prior trimalleolar fracture seen earlier same day, maintained in near anatomic alignment by splint. Dictated by: Hardik Salazar M.D. on 11/25/2022 at 21:54 Approved by: Hardik Salazar M.D. on 11/25/2022 at 21:55
[2022-11-25] MEDS: propofoL 200 MG/20 ML VIAL IV (21:27)
[2022-11-25] MEDS: HYDROMORPHONE 1 MG INJ IV (21:49)
[2022-11-26] VITALS: PULSE 75; RESP 15; O2SAT 96
[2022-11-26] MEDS: OXYCODONE/APAP 5/325 PREPACK 1 BOTTLE MISC (00:22)
== END 2022-11-26 00:22 | disposition home or self-care (01) ==
PROVIDERS: Emergency Provider Emergency Medicine; PCP Nurse Practitioner
DX: S82.852A Displaced trimalleolar fracture of left lower leg, initial encounter for closed fracture (principal); X50.1XXA Overexertion from prolonged static or awkward postures, initial encounter
CPT/HCPCS: 27752; 73560; 73600; 73610; 73700; 96374; 96375; 96376; 99152; 99284; J1170; J2270; J2704

== ENCOUNTER → 2023-02-12 13:50 | Outpatient (CLI) | payer OTHER, SELFPAY ==
--- NOTE | 2023-02-12 13:54 | DI.MG.S_ITS ---
BILATERAL DIGITAL SCREENING MAMMOGRAM 3D/2D WITH CAD: 02/12/2023 CLINICAL: Routine screening. Family history of breast cancer. Comparison is made to exams dated: 02/01/2022 mammogram, 01/27/2021 mammogram, and 01/24/2020 mammogram - [facility]. Both breasts are heterogeneously dense, which may obscure small masses (category c / 51-75% glandular tissue). Current study was also evaluated with a Computer Aided Detection (CAD) system. No significant masses, calcifications, or other findings are seen in either breast. There has been no significant interval change. IMPRESSION: NEGATIVE There is no mammographic evidence of malignancy. A 1 year screening mammogram is recommended. Based on the Tyrer Cuzick model (a risk assessment model) the patient's lifetime risk is 18.0% and her 10 year risk is 6.5%. According to the ACR, ACS, and NCCN guidelines, an annual breast MRI exam along with mammogram is recommended if the patient's lifetime risk is 20% or greater. This exam was interpreted at Station ID: [id number]. NOTE: For mammograms, a report in lay terms will be sent to the patient. Approximately 15% of breast malignancies will not be visualized mammographically. In the management of a palpable breast mass, a negative mammogram must not discourage biopsy of a clinically suspicious lesion. Electronically Signed By: Oh pedraza/lisa:02/12/2023 16:22:36 letter sent: Normal Exam ACR BI-RADS Category 1: Negative [id number]
--- NOTE | 2023-02-12 13:54 | DI.RAD.S_ITS ---
Bone Density Report Name: CHEMO ROSE Age: 57 Sex: Female Ethnicity: White Date of : 1965 Indication: postmenopausal; screening for osteoporosis; Referring Provider: SILVINO GARCIA Study: Bone densitometry was performed. Exam Date: February 12, 2023 Accession number: [id number] Bone Density: Region BMD T-score Z-score Classification AP Spine(L1-L4) 0.976 -0.6 0.6 Normal Femoral Neck (Left) 0.764 -0.8 0.4 Normal Total Hip (Left) 0.911 -0.3 0.5 Normal Femoral Neck (Right) 0.824 -0.2 0.9 Normal Total Hip (Right) 0.952 0.1 0.9 Normal Total Hip Mean 0.932 -0.1 0.7 Normal World Health Organization criteria for BMD impression classify patients as: Normal (T-score at or above -1.0), Osteopenia (T-score between -1.0 and -2.5), or Osteoporosis (T-score at or below -2.5). 10-year Fracture Risk: FRAX not reported because: All T-scores for Spine Total, Hip Total, Femoral Neck at or above -1.0 Impression: The patient has normal bone mass. Discussion: BONE DENSITY IS ABOVE THE MINIMUM DESIRABLE LEVEL AT ALL SKELETAL SITES TESTED. This patient's bone mineral density is above the minimum desirable level (T-score -1.0 or better) at all sites measured. The patient should follow a healthful lifestyle (good nutrition with adequate calcium and vitamin D, and appropriate weight-bearing exercise). Follow-Up: Consider repeating this study in 5 years or sooner if there is some new clinical indication. Reported by: PAULINE LOCK M.D. on 02/12/2023 2:36:00 PM.
[2023-02-12 14:27] LABS: Add Manual Diff / Slide Review NO; Basophils Absolute Auto 0 /uL (0-100); Basophils Percent Auto 0.7 % (0-2); Eosinophils Absolute Auto 100 /uL (0-450); Eosinophils Percent Auto 1.8 % (2-4); Hematocrit 38.4 % (36-46); Hemoglobin 13.1 g/dL (12.0-16.0); Lymphocytes Absolute Auto 3000 /uL (1100-4500); Lymphocytes Percent Auto 48.7 % (25-40); Mean Corpuscular HGB Conc 34.2 % (30-36); Mean Corpuscular Volume 90.6 fL (80-100); Monocytes Absolute Auto 400 /uL (0-900); Monocytes Percent Auto 6.2 % (3-14); Neutrophils Absolute Auto 2700 /uL (1500-7000); Neutrophils Percent Auto 42.6 % (50-75); Platelet Count 223 X10^3/uL (150-400); Red Blood Cell Count 4.24 X10^6/uL (4.0-5.2); Red Cell Distribution Width 13.6 % (11.6-14.8); White Blood Cell Count 6.3 X10^3/uL (4.5-11.0)
[2023-02-12 14:50] LABS: Alanine Aminotransferase 21 IU/L (<35); Albumin 4.3 g/dL (3.5-5.0); Albumin Globulin Ratio 1.5 (1.0-2.8); Alkaline Phosphatase 63 U/L (38-126); Aspartate Aminotransferase 25 IU/L (14-36); BUN Creatinine Ratio 10.7 (6-22); Bilirubin Total 0.6 mg/dL (0.2-1.3); Blood Urea Nitrogen 8 mg/dL (7-17); Calcium 9.7 mg/dL (8.4-10.2); Carbon Dioxide 24 mmol/L (22-32); Chloride 105 mmol/L (98-107); Cholesterol 162 mg/dL (140-199); Estimated Glomerular Filt Rate > 60 mL/min (>60); Globulin 2.8 g/dL (1.7-4.1); Glucose 87 mg/dL (70-100); HDL Cholesterol 49 mg/dL (40-60); HEMOLYSIS < 15 (0-50); LDL Cholesterol Calculated 92 mg/dL (<100); Potassium 3.7 mmol/L (3.4-5.1); Sodium 138 mmol/L (137-145); Total Protein 7.1 g/dL (6.3-8.2); Triglycerides 104 mg/dL (35-150)
[2023-02-12 15:06] LABS: Free T3, Triiodothyronine Free 3.22 pg/mL (2.77-5.27); Free T4, Direct Thyroxine 0.95 ng/dL (0.78-2.19)
[2023-02-12 15:20] LABS: Thyroid Stimulating Hormone 1.54 uIU/mL (0.47-4.68)
[2023-02-12 16:04] LABS: Creatinine Urine Random 97.6 mg/dL
[2023-02-12 16:09] LABS: Microalbumi Creatinin Ratio Ur 8.1 ug/mg CR (<30); Microalbumin Urine Random 0.8 mg/dL (0-1.6)
[2023-02-12 16:11] LABS: HIV 1 & 2 Ab/Ag 4th Gen Combo NEGATIVE (NEGATIVE); Hep C Virus Ab w/Reflex Quant NEGATIVE s/c (NEGATIVE)
== END ==
PROVIDERS: PCP Nurse Practitioner; Referring Provider Nurse Practitioner; Visit Provider Nurse Practitioner
DX: Z00.00 Encounter for general adult medical examination without abnormal findings (principal); Z12.31 Encounter for screening mammogram for malignant neoplasm of breast; S82.853A Displaced trimalleolar fracture of unspecified lower leg, initial encounter for closed fracture; Z11.4 Encounter for screening for human immunodeficiency virus [HIV]; Z11.59 Encounter for screening for other viral diseases; Z80.3 Family history of malignant neoplasm of breast; Z13.820 Encounter for screening for osteoporosis; Z78.0 Asymptomatic menopausal state
CPT/HCPCS: 36415; 77063; 77067; 77080; 80053; 80061; 82043; 82570; 84439; 84443; 84481; 85025; 86803; 87389

== ENCOUNTER → 2024-02-18 13:08 | Outpatient (CLI) | payer OTHER, SELFPAY ==
--- NOTE | 2024-02-18 13:10 | DI.MG.S_ITS ---
BILATERAL DIGITAL SCREENING MAMMOGRAM 3D/2D WITH CAD: 02/18/2024 CLINICAL: Routine screening. Family history of breast cancer. Comparison is made to exams dated: 02/12/2023 mammogram, 02/01/2022 mammogram, and 01/27/2021 mammogram - [facility]. The breasts are heterogeneously dense, which may obscure small masses (category c / 51-75% glandular tissue). Current study was also evaluated with a Computer Aided Detection (CAD) system. No significant masses, calcifications, or other findings are seen in either breast. There has been no significant interval change. IMPRESSION: NEGATIVE There is no mammographic evidence of malignancy. A 1 year screening mammogram is recommended. Based on the Tyrer Cuzick model (a risk assessment model) the patient's lifetime risk is 17.8% and her 10 year risk is 6.7%. According to the ACR, ACS, and NCCN guidelines, an annual breast MRI exam along with mammogram is recommended if the patient's lifetime risk is 20% or greater. This exam was interpreted at Station ID: [id number]. NOTE: For mammograms, a report in lay terms will be sent to the patient. Approximately 15% of breast malignancies will not be visualized mammographically. In the management of a palpable breast mass, a negative mammogram must not discourage biopsy of a clinically suspicious lesion. Electronically Signed By: Frank sotelo/lisa:02/18/2024 18:41:28 letter sent: Normal Exam ACR BI-RADS Category 1: Negative
== END ==
PROVIDERS: PCP Family Medicine; Referring Provider Family Medicine; Visit Provider Family Medicine
DX: Z12.31 Encounter for screening mammogram for malignant neoplasm of breast (principal); Z80.3 Family history of malignant neoplasm of breast; R92.333 Mammographic heterogeneous density, bilateral breasts
CPT/HCPCS: 77063; 77067

== ENCOUNTER → 2025-02-24 12:47 | Outpatient (CLI) | payer OTHER, SELFPAY ==
--- NOTE | 2025-02-24 12:48 | DI.MG.S_ITS ---
MM screening mammo BI: 02/24/2025. BI-RADS: 1 CLINICAL: 59-year old female for bilateral screening mammogram. Tyrer-Cuzick lifetime risk of 18.5%. No personal or first-degree family history of breast cancer. Current reported family history of breast cancer: maternal aunt. PRIOR EXAMS 02/18/2024, 02/12/2023, 02/01/2022, 01/27/2021. MAMMOGRAPHY TECHNIQUE: 2D and 3D (tomosynthesis) digital mammographic views obtained, with additional images as needed for full coverage. Current study was also evaluated with a Computer Aided Detection (CAD) system. DENSITY C. The breasts are heterogeneously dense, which may obscure small masses. MAMMOGRAPHY FINDINGS Bilateral: No suspicious mass, asymmetry, microcalcification, or other abnormality seen. IMPRESSION: * No evidence of malignancy. RECOMMENDATIONS Bilateral * Annual screening mammography. OVERALL ASSESSMENT CATEGORY BI-RADS-1: Negative. The [employer] recommends annual screening mammography beginning at age 40 for women with average risk of breast cancer. ELECTRONICALLY SIGNED: Gloria Fischer M.D. on 02/25/2025 at 10:36:56 PM PT Interpreting Station ID: [id number]
== END ==
LOC: MAMMO 12:47
PROVIDERS: PCP Family Medicine; Referring Provider Family Medicine; Visit Provider Family Medicine
DX: Z12.31 Encounter for screening mammogram for malignant neoplasm of breast (principal); R92.333 Mammographic heterogeneous density, bilateral breasts; Z80.3 Family history of malignant neoplasm of breast
CPT/HCPCS: 77063; 77067